=== PATIENT | female | born 1995 | race Caucasian/White ===

== ENCOUNTER 2019-08-06 14:41 | Inpatient (IN) ==
[2019-08-06] MEDS ORDERED: Lidocaine 1% 20 ML MDV INFILT PRN (15:20)
[2019-08-06] MEDS ORDERED: Metoclopramide 10 MG/2 ML VIAL IVP PRN (15:20)
[2019-08-06] MEDS ORDERED: Famotidine 20 MG/2 ML VIAL IVP PRN (15:20)
[2019-08-06] MEDS ORDERED: *HR* FentaNYL (PF) 100 MCG/2 ML VIAL IVP PRN (15:20)
[2019-08-06] MEDS ORDERED: Azithromycin 500 MG in 0.9 % Sodium Chloride 250 ML IVPB ONE (15:20)
[2019-08-06] MEDS ORDERED: Naloxone 0.4 MG/ML INJ IVP PRN (15:20)
[2019-08-06] MEDS ORDERED: Ondansetron 4 MG/2 ML VIAL IVP PRN (15:20)
[2019-08-06] MEDS ORDERED: Oxytocin 20 units/ LR 1000 mL 20 UNIT/1,000 ML BAG IVC SCH (15:30)
[2019-08-06] MEDS: Ringers Solution, Lactated 1,000 ML IVC SCH ×2 (16:25→21:24)
[2019-08-06 17:19] LABS: Basophils % 0.3 %; Eosinophils % 0.2 %; Hematocrit 35.8 % (35.3-44.9); Immature Granulocytes % 0.6 % (0-4); Lymphocytes # 2.1 K/mcL (0.6-4.6); Mean Corpuscular HGB Conc 33.5 g/dL (31.6-35.5); Mean Corpuscular Hemoglobin 27.4 pg (28.0-33.3); Mean Corpuscular Volume 81.7 fL (83.0-100.0); Mean Platelet Volume 9.5 fL (9.4-12.4); Monocytes # 0.7 K/mcL (0.0-1.3); Monocytes % 5.9 %; Neutrophils # 9.6 K/mcL (1.6-8.9); Platelet Count 333 K/mcL (140-400); Red Blood Count 4.38 M/mcL (3.82-4.97); Red Cell Distribution Width 12.9 % (11.5-14.5); White Blood Count 12.6 K/mcL (4.3-11.1)
[2019-08-06 17:37] LABS: Amphetamine Screen,Urine Negative ng/mL (Cutoff=1000); Barbiturate Screen,Urine Negative ng/mL (Cutoff=200); Benzodiazepines Screen,Urine Negative ng/mL (Cutoff=200); Cannabinoid Screen,Urine Negative ng/mL (Cutoff = 50); Cocaine Screen,Urine Negative ng/mL (Cutoff= 300); Opiate Screen,Urine Negative ng/mL (Cutoff=300); Phencyclidine Screen,Urine Negative ng/mL (Cutoff=25)
[2019-08-06] MEDS ORDERED: Epidural Premix (fent/bupiv) 110 ML EP SCH (18:30)
[2019-08-06] MEDS ORDERED: EPHEDrine 50 MG/ML VIAL IVP PRN (18:30)
[2019-08-07] MEDS ORDERED: Rho Immune Globulin 1,500 UNIT SYRINGE IM PRN (01:15)
[2019-08-07] MEDS ORDERED: Oxytocin 20 units/ LR 1000 mL 20 UNIT/1,000 ML BAG IVC SCH (01:15)
[2019-08-07] MEDS ORDERED: Measles/Mumps/Rubella Vacc 0.5 ML VIAL SQ PRN (01:15)
[2019-08-07] MEDS: Acetaminophen 325 MG TABLET PO PRN ×2 (05:30→15:26)
[2019-08-07 06:34] LABS: Basophils % 0.2 %; Eosinophils % 0.3 %; Hematocrit 31.1 % (35.3-44.9); Hemoglobin 10.4 g/dL (11.5-15.4); Immature Granulocytes % 0.6 % (0-4); Lymphocytes # 2.3 K/mcL (0.6-4.6); Lymphocytes % 15.3 %; Mean Corpuscular HGB Conc 33.4 g/dL (31.6-35.5); Mean Corpuscular Volume 80.8 fL (83.0-100.0); Monocytes # 1.2 K/mcL (0.0-1.3); Neutrophils # 11.3 K/mcL (1.6-8.9); Platelet Count 286 K/mcL (140-400); Red Blood Count 3.85 M/mcL (3.82-4.97); Segmented Neutrophils % 75.6 %; White Blood Count 14.9 K/mcL (4.3-11.1)
[2019-08-07] MEDS: Prenatal Vit/FA 1 EACH TABLET PO SCH (08:22)
[2019-08-07] MEDS: Ibuprofen 600 MG TABLET PO PRN (20:24)
[2019-08-08 08:00] VITALS: BP 107/75
[2019-08-08] MEDS: Prenatal Vit/FA 1 EACH TABLET PO SCH (08:12)
[2019-08-08] MEDS: Ibuprofen 600 MG TABLET PO PRN (08:19)
== END 2019-08-08 14:00 | disposition home or self-care (01) | DRG 806 ==
LOC: 1NENULAB 14:41 → 1NENUOBS 08-07 01:13
PROVIDERS: ADMIT Obstetrics & Gynecology; ATTEND Obstetrics & Gynecology